=== PATIENT | male | born 1965 | race Hispanic/Latino ===

== ENCOUNTER → 2019-01-05 | Day surgery (SDC) | payer SELFPAY ==
[~2019-01-05] MED LIST: ALEVE220 M1; FENTANYL CITRATE/PF 100MCG/2 ML INJ ONE; METHOTREXATE2.5 MG PO; MIDAZOLAM HCL 2 MG/2 ML VIAL ONE; OR PHACO EYE KIT ONE; PREDNISONE5 MG; PREOP PHACO EYE KIT ONE
[2019-01-05 11:55] VITALS: BP 105/92
--- OUTSIDE RECORDS SUMMARY | 2019-01-06 10:08 | XMS REPORT | Clinical Summary ---
Author Author [facility] Organization [facility] Address Unknown Phone Unavailable Care Team Providers Care Sales And Marketing Analyst Name Role Phone Sulma Rodriguez PCP Allergies No Known Allergies Medications End Date Status Medication Sig Dispensed Refills Start Date Active piroxicam (FELDENE) 20 mg Take 1 60 capsule 1 capsuleIndications: capsule by 8 Oligoarthritis, mouth daily Ankylosing spondylitis of as needed for cervical region Pain. 01/25/2019 Active predniSONE (DELTASONE) 5 Take 1 tablet 30 tablet 1 mg tabletIndications: by mouth 9 Oligoarthritis, daily for 30 Ankylosing spondylitis of days. cervical region 01/25/2019 Active folic acid (FOLVITE) 1 mg Take 1 tablet 30 tablet 3 tabletIndications: by mouth 9 Arthralgia, unspecified daily for 30 joint, Ankylosing days. spondylitis of cervical region 01/21/2019 Active methotrexate (RHEUMATREX) Take 6 24 tablet 2 2.5 mg tabletIndications: tablets by 9 Arthralgia, unspecified mouth weekly joint, Ankylosing for 30 days. spondylitis of cervical region 01/22/2019 Active adalimumab (HUMIRA PEN) Inject 0.8 mL 2 Each 3 40 mg/0.8 mL pen kit under the 9 injectionIndications: skin every 14 Ankylosing spondylitis of days for 30 cervical region days. 08/17/2018 Discontinued hydroxychloroquine Take 1 Tab by 30 Tab 3 (PLAQUENIL) 200 mg mouth daily. 1 tabletIndications: Oligoarthritis 08/17/2018 Discontinued piroxicam (FELDENE) 20 mg Take 1 90 capsule 1 capsuleIndications: Pain, capsule by 6 joint, multiple sites mouth daily. 11/20/2018 Discontinued methotrexate (RHEUMATREX) Take 1 tablet 12 tablet 0 2.5 mg tablet by mouth 8 weekly. 08/17/2018 Discontinued predniSONE (DELTASONE) 5 Take 1 tablet 0 mg tablet by mouth. 8 11/20/2018 Discontinued folic acid (FOLVITE) 1 mg Take 1 tablet 0 tablet by mouth. 8 11/20/2018 Discontinued adalimumab (HUMIRA PEN) Inject 0.8 mL 2 Each 0 40 mg/0.8 mL pen kit under the 8 injection skin every 14 days. 11/20/2018 Discontinued predniSONE (DELTASONE) 5 Take 1 tablet 30 tablet 1 mg tabletIndications: by mouth 8 Oligoarthritis, daily. Ankylosing spondylitis of cervical region Status Hospital, Clinic, or Ordered Dose Route Frequency Start End Date Other Facility Date Administered Medication Ended lidocaine 1 % (XYLOCAINE) 4 mL IJ ONCE 11/20/19 injection 4 mL 19 9 Ended methylPREDNISolone sodium 40 mg IM ONCE 11/20/19 succinate (SOLU-MEDROL) 19 9 injection 40 mg Active Problems Problem Noted Date Rheumatoid arthritis 07/20/2018 Encounters Care Team Description Date Type Specialty Arthralgia, unspecified joint; Ankylosing spondylitis of cervical region 11/20/2018 Ancillary Radiology Procedure Arthralgia, unspecified joint; Ankylosing spondylitis of cervical region 11/20/2018 Ancillary Radiology Procedure Arthralgia, unspecified joint; Ankylosing spondylitis of cervical region 11/20/2018 Ancillary Radiology Procedure Arthralgia, unspecified joint; Ankylosing spondylitis of cervical region 11/20/2018 Ancillary Radiology Procedure Arthralgia, unspecified joint; Ankylosing spondylitis of cervical region 11/20/2018 Ancillary Radiology Procedure Arthralgia, unspecified joint; Ankylosing spondylitis of cervical region 11/20/2018 Ancillary Radiology Procedure Natan Garcia MD Tareen, Hina S, Fellow() Arthralgia, unspecified joint (Primary Dx); Bilateral knee effusions; Oligoarthritis; Ankylosing spondylitis of cervical region 11/20/2018 Office Visit Rheumatology Carmen Miller Interpretation 11/20/2018 Telephone 11/20/2018 Travel Alexa Burton MD Oligoarthritis (Primary Dx); Preventative health care; Ankylosing spondylitis of cervical region; Primary osteoarthritis of both knees 08/17/2018 Office Visit Family Practice Sulma Rodriguez DO Preventative health care; Rheumatoid arthritis, involving unspecified site, unspecified rheumatoid factor presence 07/30/2018 Orders Only Family Practice Sulma Rodriguez DO Preventative health care 07/28/2018 Orders Only [facility] Sulma Rodriguez DO Effusion of both knee joints 07/20/2018 Ancillary Radiology Procedure Edgar Andrews III, MD Javed, Sara, DO Rheumatoid arthritis, involving unspecified site, unspecified rheumatoid factor presence (Primary Dx); Preventative health care; Effusion of both knee joints 07/20/2018 Office Visit Family Practice Elias Noguera Interpretation 07/20/2018 Telephone after 01/05/2018 Immunizations Name Dates Previously Given Next Due Influenza, 08/17/2018 (Deferred: Patient Refused) Vaccine<FLUCELVAX>(Multi- Dose) Family History Relation Name Status Comments Brother Alive Brother Alive Brother Alive Brother Alive Brother Alive Brother Alive Daughter Alive Daughter Alive Father Maternal Grandfather Maternal Grandmother Mother Paternal Grandfather Paternal Grandmother Sister Alive Social History Date Tobacco Use Types Packs/Day Years Used Never Smoker Smokeless Tobacco: Never Used Alcohol Use Drinks/Week oz/Week Comments No Sex Assigned at Date Recorded Not on file Industry Job Start Date Occupation Not on file Not on file Not on file Travel End Travel History Travel Start No recent travel history available. Last Filed Vital Signs Time Taken Vital Sign Reading 11/20/2018 8:44 AM [employer] [facility] Blood Pressure 135/77 11/20/2018 8:44 AM [employer] Pulse 77 11/20/2018 8:44 AM [employer] Temperature 36.5 C (97.7 F) 11/20/2018 8:44 AM [employer] [facility] Respiratory Rate 19 - Oxygen Saturation - - Inhaled Oxygen - Concentration 11/20/2018 8:44 AM [employer] Weight 83.5 kg (184 lb) 11/20/2018 8:44 AM [employer] Height 170.2 cm (5' 7") 11/20/2018 8:44 AM [employer] Body Mass Index 28.82 Plan of Treatment Care Team Description Date Type Specialty Momo Leone, OD [address] [place] [address] [phone] 01/22/2019 Office Visit Ophthalmology Iesha Scott, Fellow() [address] [address] 02/12/2019 Office Visit Rheumatology Health Maintenance Due Date Last Done Comments Colorectal Cancer Scrn 07/28/2019 07/28/2018, 07/29/2016 Annual (FIT/FOBT) Age 50 to 75 Procedures Comments Procedure Name Priority Date/Time Associated Diagnosis FLUID STAIN / CULTURE Routine 11/20/2018 Arthralgia, unspecified 3:33 PM [employer] joint Ankylosing spondylitis of cervical region PATHOLOGY REVIEW, FLUIDS Routine 11/20/2018 3:32 PM [employer] URIC ACID ELIZABETH Routine 11/20/2018 Arthralgia, unspecified 3:32 PM [employer] joint Ankylosing spondylitis of cervical region URIC ACID, FLD Routine 11/20/2018 Arthralgia, unspecified 3:32 PM [employer] joint Ankylosing spondylitis of cervical region CELL COUNT, FLUID Routine 11/20/2018 Arthralgia, unspecified 3:32 PM [employer] joint Ankylosing spondylitis of cervical region XRAY FOOT 3 VIEWS MIN Routine 11/20/2018 Arthralgia, unspecified 2:05 PM [employer] joint Ankylosing spondylitis of cervical region XRAY FOOT 3 VIEWS - Routine 11/20/2018 Arthralgia, unspecified ROUTINE 2:05 PM [employer] joint Ankylosing spondylitis of cervical region XRAY HAND 3 VIEWS MIN Routine 11/20/2018 Arthralgia, unspecified 2:04 PM [employer] joint Ankylosing spondylitis of cervical region XRAY HAND 3 VIEWS - Routine 11/20/2018 Arthralgia, unspecified ROUTINE 2:04 PM [employer] joint Ankylosing spondylitis of cervical region XRAY SACROILIAC JOINT 3 Routine 11/20/2018 Arthralgia, unspecified VIEWS MIN. 2:04 PM [employer] joint Ankylosing spondylitis of cervical region XRAY SACROILIAC JOINT 3 Routine 11/20/2018 Arthralgia, unspecified VIEWS MIN. 2:04 PM [employer] joint Ankylosing spondylitis of cervical region XRAY SPINE LUMBAR BENDING Routine 11/20/2018 Arthralgia, unspecified 4 VIEWS 2:03 PM [employer] joint Ankylosing spondylitis of cervical region XRAY SPINE, THORACIC, Routine 11/20/2018 Arthralgia, unspecified LUMBAR, AP-LAT 2:02 PM [employer] joint Ankylosing spondylitis of cervical region XRAY SPINE CERVICAL 4-5 Routine 11/20/2018 Arthralgia, unspecified VIEWS 2:02 PM [employer] joint Ankylosing spondylitis of cervical region QUANTIFERON TB GOLD Routine 11/20/2018 11:41 AM [employer] URIC ACID Routine 11/20/2018 Arthralgia, unspecified 11:41 AM [employer] joint HEPATITIS PANEL Routine 11/20/2018 Arthralgia, unspecified 11:41 AM [employer] joint C-REACTIVE PROT Routine 11/20/2018 Arthralgia, unspecified 11:41 AM [employer] joint SED RATE Routine 11/20/2018 Arthralgia, unspecified 11:41 AM [employer] joint COMPREHENSIVE METABOLIC Routine 11/20/2018 Arthralgia, unspecified PANEL(DBIL NOT INCLUDED) 11:41 AM [employer] joint CBC/DIFF Routine 11/20/2018 Arthralgia, unspecified 11:41 AM [employer] joint HLA B 27 Routine 11/20/2018 Arthralgia, unspecified 11:41 AM [employer] joint QUANTIFERON TB GOLD Routine 11/20/2018 Arthralgia, unspecified 11:41 AM [employer] joint MERA Routine 07/30/2018 Rheumatoid arthritis, 9:53 AM CDT involving unspecified site, unspecified rheumatoid factor presence CBC/DIFF Routine 07/30/2018 Preventative health care 9:53 AM CDT CCP IGG ABS Routine 07/30/2018 Rheumatoid arthritis, 9:53 AM CDT involving unspecified site, unspecified rheumatoid factor presence COMPREHENSIVE METABOLIC Routine 07/30/2018 Preventative health care PANEL(DBIL NOT INCLUDED) 9:53 AM CDT HEMOGLOBIN A1C Routine 07/30/2018 Preventative health care 9:53 AM CDT HIV-1/HIV-2 ROUTINE Routine 07/30/2018 Preventative health care SCREENING 9:53 AM CDT LIPID PROFILE Routine 07/30/2018 Preventative health care 9:53 AM CDT RA FACTOR Routine 07/30/2018 Rheumatoid arthritis, 9:53 AM CDT involving unspecified site, unspecified rheumatoid factor presence SED RATE Routine 07/30/2018 Rheumatoid arthritis, 9:53 AM CDT involving unspecified site, unspecified rheumatoid factor presence TSH Routine 07/30/2018 Preventative health care 9:53 AM CDT OCCULT BLOOD ICT Routine 07/28/2018 Preventative health care 10:44 AM CDT XRAY KNEES-BILATERAL WT. Routine 07/20/2018 Effusion of both knee BEARING (AP/LAT/SUN) 3:34 PM CDT joints after 01/05/2018 Results * FLUID STAIN / CULTURE (11/20/2018 3:33 PM [employer] [facility]) Spec Synovial fluid [facility] 1 Description Order Comments None [facility] 1 Gram Stain 2+ WBC's seen [facility] MICROBIOLOGY No organisms seen Culture No growth 3 days [facility] MICROBIOLOGY Report Status Final 11/24/2018 [facility] MICROBIOLOGY Specimen Synovial fluid - SYNOVIAL FLUID Performing Organization Address City/State/Zipcode Phone Number [facility] 1 BT MICROBIOLOGY * PATHOLOGY REVIEW, FLUIDS (11/20/2018 3:32 PM [employer] [facility]) Pathology (note) [facility] Review, Fluids Slide reviewed for crystals. 1 No crystals are identified. Electronically signed out by: Cynthia Christine M.D.,PhD. /[id number] CPT [id number] Specimen Synovial fluid Performing Organization Address City/[facility]/Zipcode Phone Number [facility] 1 * URIC ACID, FLD (11/20/2018 3:32 PM [employer] [facility]) Uric Acid, Fld 5.2 [facility] 4 Specimen Synovial fluid - SYNOVIAL FLUID Performing Organization Address City/[facility] Phone Number [facility] 4 * URIC ACID ELIZABETH (11/20/2018 3:32 PM [employer] [facility]) Uric Acid Elizabeth Negative [facility] Reviewed by Pathologist 1 Specimen Synovial fluid - SYNOVIAL FLUID Performing Organization Address City/[facility] Phone Number [facility] 1 * CELL COUNT, FLUID (11/20/2018 3:32 PM [employer] [facility]) Volume 6.0 mL [facility] 1 Appearance Cloudy [facility] 1 RBC 2,500 /uL [facility] 1 WBC 5,825 /uL [facility] 1 Neutrophil 80 % [facility] 1 Lymphocyte 6 % [facility] 1 Monocyte 7 % [facility] 1 Macrophage 7 % [facility] 1 Specimen Synovial fluid - SYNOVIAL FLUID Performing Organization Address [facility] Phone Number [facility] 1 * XRAY FOOT 3 VIEWS - ROUTINE (11/20/2018 2:05 PM [employer] [facility]) Impressions Performed At IMPRESSION: SMS Lateral subluxation of several of the right toes. Old appearing deformity of the distal left tibia. Scattered degenerative change. No osseous erosion. Small inferior calcaneal bone spurs Signed By: Nishant Chawla MD, 11/20/2018 1:37 PM Narrative Performed At Exam:Radiographs of the right and left foot SMS History:Pain. Arthritis. Comparison: None. DISCUSSION:No fracture. Lateral subluxation of several of the right toes. Old appearing deformity of the distal left tibia. Scattered degenerative change. No osseous erosion. Small inferior calcaneal bone spurs. No abnormal soft tissue calcification or soft tissue defect. Procedure Note Interface, Rad/Mammog In - 11/20/2018 2:05 PM [employer] [facility] Exam: Radiographs of the right and left foot History: Pain. Arthritis. Comparison: None. DISCUSSION: No fracture. Lateral subluxation of several of the right toes. Old appearing deformity of the distal left tibia. Scattered degenerative change. No osseous erosion. Small inferior calcaneal bone spurs. No abnormal soft tissue calcification or soft tissue defect. IMPRESSION IMPRESSION: Lateral subluxation of several of the right toes. Old appearing deformity of the distal left tibia. Scattered degenerative change. No osseous erosion. Small inferior calcaneal bone spurs Signed By: Nishant Chawla MD, 11/20/2018 1:37 PM Performing Organization Address [facility] Phone Number SMS * XRAY FOOT 3 VIEWS MIN (11/20/2018 2:05 PM [employer] [facility]) Impressions Performed At IMPRESSION: SMS Lateral subluxation of several of the right toes. Old appearing deformity of the distal left tibia. Scattered degenerative change. No osseous erosion. Small inferior calcaneal bone spurs Signed By: Nishant Chawla MD, 11/20/2018 1:37 PM Narrative Performed At Exam:Radiographs of the right and left foot SMS History:Pain. Arthritis. Comparison: None. DISCUSSION:No fracture. Lateral subluxation of several of the right toes. Old appearing deformity of the distal left tibia. Scattered degenerative change. No osseous erosion. Small inferior calcaneal bone spurs. No abnormal soft tissue calcification or soft tissue defect. Procedure Note Interface, Rad/Mammog In - 11/20/2018 2:05 PM [employer] [facility] Exam: Radiographs of the right and left foot History: Pain. Arthritis. Comparison: None. DISCUSSION: No fracture. Lateral subluxation of several of the right toes. Old appearing deformity of the distal left tibia. Scattered degenerative change. No osseous erosion. Small inferior calcaneal bone spurs. No abnormal soft tissue calcification or soft tissue defect. IMPRESSION IMPRESSION: Lateral subluxation of several of the right toes. Old appearing deformity of the distal left tibia. Scattered degenerative change. No osseous erosion. Small inferior calcaneal bone spurs Signed By: Nishant Chawla MD, 11/20/2018 1:37 PM Performing Organization Address [facility] Phone Number SMS * XRAY HAND 3 VIEWS - ROUTINE (11/20/2018 2:04 PM [employer] [facility]) Impressions Performed At IMPRESSION: SMS Scattered degenerative change. No osseous erosion Signed By: Nishant Chawla MD, 11/20/2018 1:30 PM Narrative Performed At Exam:Radiographs of the right hand. Radiographs of the left hand. SMS History:Pain. Arthritis Comparison: 10/15/2011. DISCUSSION:No fracture or dislocation. Scattered degenerative change. No osseous erosion. No abnormal soft tissue calcification or soft tissue defect.Small metallic radiopaque foreign body at the left second proximal finger. Procedure Note Edward Michael/Mammog In - 11/20/2018 2:05 PM [employer] [facility] Exam: Radiographs of the right hand. Radiographs of the left hand. History: Pain. Arthritis Comparison: 10/15/2011. DISCUSSION: No fracture or dislocation. Scattered degenerative change. No osseous erosion. No abnormal soft tissue calcification or soft tissue defect. Small metallic radiopaque foreign body at the left second proximal finger. IMPRESSION IMPRESSION: Scattered degenerative change. No osseous erosion Signed By: Nishant Chawla MD, 11/20/2018 1:30 PM Performing Organization Address [employer] Phone Number SMS * XRAY HAND 3 VIEWS MIN (11/20/2018 2:04 PM [employer] [facility]) Impressions Performed At IMPRESSION: SMS Scattered degenerative change. No osseous erosion Signed By: Nishant Chawla MD, 11/20/2018 1:30 PM Narrative Performed At Exam:Radiographs of the right hand. Radiographs of the left hand. SMS History:Pain. Arthritis Comparison: 10/15/2011. DISCUSSION:No fracture or dislocation. Scattered degenerative change. No osseous erosion. No abnormal soft tissue calcification or soft tissue defect.Small metallic radiopaque foreign body at the left second proximal finger. Procedure Note Edward Michael/Mammog In - 11/20/2018 2:05 PM [employer] [facility] Exam: Radiographs of the right hand. Radiographs of the left hand. History: Pain. Arthritis Comparison: 10/15/2011. DISCUSSION: No fracture or dislocation. Scattered degenerative change. No osseous erosion. No abnormal soft tissue calcification or soft tissue defect. Small metallic radiopaque foreign body at the left second proximal finger. IMPRESSION IMPRESSION: Scattered degenerative change. No osseous erosion Signed By: Nishant Chawla MD, 11/20/2018 1:30 PM Performing Organization Address [facility]/[employer] Phone Number SMS * XRAY SACROILIAC JOINT 3 VIEWS MIN. (11/20/2018 2:04 PM [employer] [facility]) Only the most recent of 2 results within the time period is included. Impressions Performed At IMPRESSION: SMS Scattered degenerative change. This is most pronounced at the left sacroiliac joint with partial ankylosis. No osseous erosion Signed By: Nishant Chawla MD, 11/20/2018 1:35 PM Narrative Performed At Exam:Radiographs of the sacroiliac joints right and left SMS History:Pain. Arthritis Comparison: None. DISCUSSION:No fracture or dislocation. Scattered degenerative change. This is most pronounced at the left sacroiliac joint with partial ankylosis. No osseous erosion. No abnormal soft tissue calcification or soft tissue defect. Procedure Note Interface, Edward/Mammog In - 11/20/2018 2:04 PM [employer] Exam: Radiographs of the sacroiliac joints right and left History: Pain. Arthritis Comparison: None. DISCUSSION: No fracture or dislocation. Scattered degenerative change. This is most pronounced at the left sacroiliac joint with partial ankylosis. No osseous erosion. No abnormal soft tissue calcification or soft tissue defect. IMPRESSION IMPRESSION: Scattered degenerative change. This is most pronounced at the left sacroiliac joint with partial ankylosis. No osseous erosion Signed By: Nishant Chawla MD, 11/20/2018 1:35 PM Performing Organization Address [facility] Phone Number SMS * XRAY SPINE LUMBAR BENDING 4 VIEWS (11/20/2018 2:03 PM [employer] [facility]) Impressions Performed At IMPRESSION: SMS Scattered degenerative change. No osseous erosion Signed By: Nishant Chawla MD, 11/20/2018 1:32 PM Narrative Performed At Exam:Radiographs of the lumbar spine 4 views with flexion and SMS extension History:Pain. Arthritis Comparison: None. DISCUSSION:No fracture or dislocation. Scattered degenerative change. No osseous erosion. No abnormal soft tissue calcification or soft tissue defect. No subluxation on the flexion or extension images. Procedure Note InterfaceEdward/Mammog In - 11/20/2018 2:04 PM [employer] [facility] Exam: Radiographs of the lumbar spine 4 views with flexion and extension History: Pain. Arthritis Comparison: None. DISCUSSION: No fracture or dislocation. Scattered degenerative change. No osseous erosion. No abnormal soft tissue calcification or soft tissue defect. No subluxation on the flexion or extension images. IMPRESSION IMPRESSION: Scattered degenerative change. No osseous erosion Signed By: Nishant Chawla MD, 11/20/2018 1:32 PM Performing Organization Address [facility] Phone Number SMS * XRAY SPINE, THORACIC, LUMBAR, AP-LAT (11/20/2018 2:02 PM [employer] [facility]) Impressions Performed At IMPRESSION: SMS Scattered degenerative change. No osseous erosion Signed By: Nishant Chawla MD, 11/20/2018 1:33 PM Narrative Performed At Exam:Radiographs of the thoracolumbar spine. SMS History:Pain. Arthritis Comparison: None. DISCUSSION:No fracture or dislocation. Scattered degenerative change. No osseous erosion. No abnormal soft tissue calcification or soft tissue defect. Procedure Note Alec Rad/Mammog In - 11/20/2018 2:03 PM [employer] Exam: Radiographs of the thoracolumbar spine. History: Pain. Arthritis Comparison: None. DISCUSSION: No fracture or dislocation. Scattered degenerative change. No osseous erosion. No abnormal soft tissue calcification or soft tissue defect. IMPRESSION IMPRESSION: Scattered degenerative change. No osseous erosion Signed By: Nishant Chawla MD, 11/20/2018 1:33 PM Performing Organization Address City/State/Zipcode Phone Number SMS * XRAY SPINE CERVICAL 4-5 VIEWS (11/20/2018 2:02 PM [employer] [facility]) Impressions Performed At IMPRESSION: SMS Marked osseous demineralization with ankylosis of intervertebral disc spaces and facet joints due to syndesmotic formation suggestive of ankylosing spondylitis. Dictated By: Radha Scherer MD, 11/20/2018 1:40 PM I have reviewed the study and agree with the findings in this report. Signed By: Nishant Chawla MD, 11/20/2018 1:43 PM Narrative Performed At EXAM: Cervical Spine X-ray - 3 views SMS HISTORY:inflamm arthritis, COMPARISON: Cervical spine radiographs 10/15/2011 DISCUSSION: On the lateral view, the cervical spine is visualized from the level of the skull base toC6. Slightly decreased cervical spine lordosis. Persistent squaring of the vertebral bodies with ankylosis of intervertebral disc spaces and facet joints secondary to syndesmotic formation. No displaced fracture or compression deformity is identified. Diffuse osseous demineralization. Procedure Note Alec Rad/Mammog In - 11/20/2018 2:02 PM [employer] EXAM: Cervical Spine X-ray - 3 views HISTORY:inflamm arthritis, COMPARISON: Cervical spine radiographs 10/15/2011 DISCUSSION: On the lateral view, the cervical spine is visualized from the level of the skull base to C6. Slightly decreased cervical spine lordosis. Persistent squaring of the vertebral bodies with ankylosis of intervertebral disc spaces and facet joints secondary to syndesmotic formation. No displaced fracture or compression deformity is identified. Diffuse osseous demineralization. IMPRESSION IMPRESSION: Marked osseous demineralization with ankylosis of intervertebral disc spaces and facet joints due to syndesmotic formation suggestive of ankylosing spondylitis. Dictated By: Radha Scherer MD, 11/20/2018 1:40 PM I have reviewed the study and agree with the findings in this report. Signed By: Nishant Chawla MD, 11/20/2018 1:43 PM Performing Organization Address [facility] Phone Number SMS * QUANTIFERON TB GOLD (11/20/2018 11:41 AM [employer] [facility]) [facility] [employer] (note) [employer] [employer] Plus THOR result is determined by subtracting the Nil value from either TB antigen (Ag) tube. The mitogen tube serves as a control for the test. QUANTIFERON TB1 0.04 LABORATORY AG VALUE Unit: IU/mL [facility] QUANTIFERON TB2 0.04 LABORATORY AG VALUE Unit: IU/mL [facility] QuantiFERON Nil 0.04 LABORATORY Value Unit: IU/mL [facility] QuantiFERON 0.92 LABORATORY Mitogen Value Unit: IU/mL [facility] THOR Performing Organization Address [facility] Phone Number [employer] LABORATORY CORPORATION OF [address] [place] [address] THOR 145 * QUANTIFERON TB GOLD (11/20/2018 11:41 AM RETAIL RESET MERCHANDISER) [facility] QuantiFERON Incubation performed. LABORATORY Incubation [facility] THOR QuantiFERON TB Negative LABORATORY Gold Reference range: Negative [facility] THOR Specimen Blood Performing Organization Address [facility] Phone Number [employer] [facility]ATORY [facility]POR[facility] OF [address] [place] [address] THOR 145 * COMPREHENSIVE METABOLIC PANEL(DBIL NOT INCLUDED) (11/20/2018 11:41 AM RETAIL RESET MERCHANDISER) Only the most recent of 2 results within the time period is included. [facility] Albumin 3.6 (L) 4.2 - 5.5 g/dL [facility] Calcium 9.5 8.6 - 10.3 mg/dL [facility] 1 CO2 28 21 - 31 mmol/L [facility] 1 Chloride 103 98 - 107 mmol/L [facility] 1 Creatinine 0.70 0.70 - 1.30 mg/dL [facility] 1 Glucose 96 70 - 110 mg/dL [facility] 1 Alk Phos 102 34 - 104 U/L [place] [address] Potassium 4.1 3.5 - 5.1 mmol/L [place] [address] Sodium 137 136 - 145 mmol/L [facility] 1 ALT 25 7 - 52 U/L [place] [address] AST 21 13 - 39 U/L [facility] 1 Urea Nitrogen 12 7 - 25 mg/dL [place] [address] T Bilirubin 0.5 0.2 - 1.2 mg/dL [place] [address] T Protein 9.0 (H) 6.0 - 8.3 g/dL [place] [address] GFR, Estimated >60 mL/min/1.73 m2 [place] [address] GFR, Estim, >60 mL/min/1.73 m2 [place] [address] Afr-Am Anion Gap 6 [place] [address] Specimen Blood Performing Organization Address [facility] Phone Number [facility] 1 * HLA B 27 (11/20/2018 11:41 AM RETAIL RESET MERCHANDISER) [facility] HLA-B27 Negative LABORATORY (note) [facility] HLA-B*27 Negative [facility] B27 allele interpretation for all loci based on IMGT/HLA database version 3.33.0 This test was developed and its performance characteristics determined by [employer].It has not been cleared or approved by the Food and Drug Administration. [facility] CLIA ID Number [id number] This test was performed using PCR (Polymerase Chain Reaction)/SSOP (Sequence Specific Oligonucleotide Probes) technique.SBT (Sequence Based Typing) and/or SSP (Sequence Specific Primers) may be used as supplemental methods when necessary.Please contact [facility] Customer Service at if you have any questions. Director of [facility] Laboratory Dr Hal Villegas, PhD Specimen Blood Performing Organization Address [facility] Phone Number [employer] [facility] OF [address] [place] [address] THOR 145 * URIC ACID (11/20/2018 11:41 AM RETAIL RESET MERCHANDISER) Uric acid 5.5 4.4 - 7.6 mg/dL BT [facility]IN[facility] 1 Specimen Blood Performing Organization Address [facility] Phone Number [employer] BT [facility] 1 * SED RATE (11/20/2018 11:41 AM RETAIL RESET MERCHANDISER) Only the most recent of 2 results within the time period is included. Sed Rate 101 (H) <20 mm/Hr BT [facility]IN[facility] 3 Specimen Blood Performing Organization Address City/[facility] Phone Number [facility] 3 * HEPATITIS PANEL (11/20/2018 11:41 AM RETAIL RESET MERCHANDISER) HCV IgG Negative NEG BT [facility] 3 HBsAg Negative NEG BT [facility] 3 HAV, IgM Negative NEG BT [facility] 3 HBcAb, IgM Negative NEG BT [facility]IN[facility] 3 Specimen Blood Performing Organization Address [facility] Phone Number [facility] 3 * C-REACTIVE PROT (11/20/2018 11:41 AM RETAIL RESET MERCHANDISER) C-Reactive Prot 3.7 <10 mg/dL BT [facility] 1 Performing Organization Address [facility] Phone Number [facility] 1 * CBC/DIFF (11/20/2018 11:41 AM RETAIL RESET MERCHANDISER) Only the most recent of 2 results within the time period is included. WBC 8.1 4.5 - 12.0 K/uL [facility] 2 RBC 4.61 4.60 - 6.20 M/uL [facility] 2 Hemoglobin 12.9 (L) 14.0 - 18.0 g/dL [facility] 2 Hematocrit 41.1 40.0 - 54.0 % [facility] 2 MCV 89 82 - 92 fL [facility] 2 MCH 28.0 27.0 - 31.0 pg [facility] 2 MCHC 31.4 (L) 32.0 - 36.0 g/dL [facility] 2 RDW 48.0 (H) 35.1 - 43.9 fL [facility] 2 Platelet 254 150 - 400 K/uL [facility] 2 Neutrophil 67.8 34.0 - 67.9 % [facility] 2 Lymphocyte 20.5 (L) 21.8 - 50.0 % [facility] 2 Monocyte 8.3 5.3 - 12.0 % [facility] 2 Eosinophil 2.9 0.8 - 5.0 % [facility] 2 Basophil 0.5 0.2 - 1.2 % [facility] 2 Neutrophil, Abs 5.46 (H) 1.78 - 5.36 K/uL [facility] 2 Lymphocyte, Abs 1.65 1.32 - 3.57 K/uL [facility] 2 Monocyte, Abs 0.67 0.30 - 0.82 K/uL [facility] 2 Eosinophil, Abs 0.23 0.04 - 0.54 K/uL [facility] 2 Basophil, Abs 0.04 0.01 - 0.08 K/uL [facility] 2 Specimen Blood Performing Organization Address [facility] Phone Number [facility] 2 * HIV-1/HIV-2 ROUTINE SCREENING (07/30/2018 9:53 AM CDT) Pathologist [facility] HIV-1/HIV-2 Negative NEG BT [facility] 3 Performing Organization Address [facility] Phone Number [facility] 3 * HEMOGLOBIN A1C (07/30/2018 9:53 AM CDT) Pathologist [facility] Hemoglobin A1c 5.7 4.3 - 6.1 % DIAGNOSTIC IMMUNOLOGY Est Average 116.9 mg/dL BT DIAGNOSTIC Gluc IMMUNOLOGY Specimen Blood Performing Organization Address [facility] Phone Number [facility] DIAGNOSTIC IMMUNOLOGY * CCP IGG ABS (07/30/2018 9:53 AM CDT) Pathologist [facility] CCP Abs IgG/IgA 12 LABORATORY Reference range: 0 to 19 CORPORATION OF Unit: units THOR (note) Negative <20 Weak [id number] - 39 Moderate [id number] - 59 Strong positive>59 Specimen Blood Performing Organization Address [facility] Phone Number [facility]ORY [facility]POR[facility] OF [address] [place] [place] [address] THOR 145 * TSH (07/30/2018 9:53 AM CDT) Pathologist [facility] TSH 1.93 0.57 - 3.74 uIU/mL MAIN[facility]ATION 1 Specimen Blood Performing Organization Address [facility] Phone Number [facility] 1 * RA FACTOR (07/30/2018 9:53 AM CDT) [facility] RA Factor <10 <14 IU/mL [facility]IN[facility] 1 Specimen Blood Performing Organization Address [facility] Phone Number [facility] 1 * LIPID PROFILE (07/30/2018 9:53 AM CDT) Pathologist [facility] Cholesterol 133 mg/dL BT [facility] Comment: 1 REFERENCE RANGE: Desirable: <200 mg/dL Borderline: 200-240 mg/dL High Risk: >240 mg/dL Triglyceride 110 <150 mg/dL BT [facility]IN[facility]ATION Comment: 1 REFERENCE RANGE: Normal: <150 mg/dL Borderline High: 150-199 mg/dL High: 200-499 mg/dL Very High: >ma=410 mg/dL HDL 40 mg/dL BT [facility]IN[facility] Comment: 1 Increased CHD risk: <40 mg/dL Decreased CHD risk: >60 mg/dL LDL 71 mg/dL BT [facility]IN[facility] Comment: 1 REFERENCE RANGE: Optimal: <100 mg/dL Near Optimal: 100-129 mg/dL Borderline High: 130-159 mg/dL High: 160-189 mg/dL Very High: >cl=652 mg/dL Specimen Blood Performing Organization Address [facility] Phone Number [employer] BT MAIN-STATION 1 * MERA (07/30/2018 9:53 AM CDT) MERA Screen Negative NEG BT DIAGNOSTIC IMMUNOLOGY Specimen Blood Performing Organization Address [facility] Phone Number [employer] BT DIAGNOSTIC IMMUNOLOGY * OCCULT BLOOD ICT (07/28/2018 10:44 AM CDT) Occult Blood Negative NEG [facility] ICT Specimen Stool Performing Organization Address [facility] Phone Number [employer] [facility] * XRAY KNEES-BILATERAL WT. BEARING (AP/LAT/SUN) (07/20/2018 3:34 PM CDT) Impressions Performed At IMPRESSION: SMS 1. Kellgren-Go grade 3, moderate compartmental osteoarthrosis of the right knee. 2. Kellgren-Go grade 3, moderate tricompartmental osteoarthrosis of the left knee. 3. Moderate bilateral joint effusions. Dictated By: Keegan Camacho DO, 07/21/2018 8:01 AM I have reviewed the study and agree with the findings in this report. Signed By: Brandon Barreto MD, 07/21/2018 8:47 AM Narrative Performed At EXAM: Bilateral knee radiographs, 2 weight-bearing views and one sunrise SMS view of each INDICATION: knee pain and effusion COMPARISON: Bilateral knee x-ray from 10/15/2011 DISCUSSION: Right knee: The medial and lateral joint spaces are decreased. Mild medial and lateral compartment osteophytosis. Moderate patellofemoral compartment degenerative changes. Left knee: The medial and lateral joint spaces are decreased. Mild medial and lateral compartment osteophytosis. Moderate patellofemoral compartment degenerative changes. No acute fracture or dislocation. Moderate bilateral joint effusions. The soft tissues are otherwise unremarkable. Procedure Note Interface, Rad/Mammog In - 07/21/2018 8:52 AM CDT EXAM: Bilateral knee radiographs, 2 weight-bearing views and one sunrise view of each INDICATION: knee pain and effusion COMPARISON: Bilateral knee x-ray from 10/15/2011 DISCUSSION: Right knee: The medial and lateral joint spaces are decreased. Mild medial and lateral compartment osteophytosis. Moderate patellofemoral compartment degenerative changes. Left knee: The medial and lateral joint spaces are decreased. Mild medial and lateral compartment osteophytosis. Moderate patellofemoral compartment degenerative changes. No acute fracture or dislocation. Moderate bilateral joint effusions. The soft tissues are otherwise unremarkable. IMPRESSION IMPRESSION: 1. Kellgren-Go grade 3, moderate compartmental osteoarthrosis of the right knee. 2. Kellgren-Go grade 3, moderate tricompartmental osteoarthrosis of the left knee. 3. Moderate bilateral joint effusions. Dictated By: Keegan Camacho DO, 07/21/2018 8:01 AM I have reviewed the study and agree with the findings in this report. Signed By: Brandon Barreto MD, 07/21/2018 8:47 AM Performing Organization Address City/State/Zipcode Phone Number SMS after 01/05/2018 Insurance Type Payer Benefit Subscriber ID Effective Phone Address Plan / Dates Group [facility] xxxxxx 2018-[address] [employer] /06/2019 [id number] [place], [place] [address]
--- OUTSIDE RECORDS SUMMARY | 2019-01-06 10:09 | XMS REPORT ---
Author [facility] Address Unknown Phone Unavailable Care Team Providers Care Armed Custom Protection Officer Name Role Phone Unavailable Unavailable Problems This patient has no known problems. Allergies, Adverse Reactions, Alerts This patient has no known allergies or adverse reactions. Medications This patient has no known medications. Encounters Start Date/Time End Date/Time Encounter Type Admission Type Attending [email or web address] Care Department Encounter ID 2019-02-12 00:00:00 2019-02-12 00:00:00 Outpatient [facility] [id number] 2019-01-22 00:00:00 2019-01-22 00:00:00 Outpatient [facility] [id number] 2018-11-20 12:08:56 2018-11-20 12:08:56 Outpatient [facility] [id number] 2018-11-20 12:08:51 2018-11-20 12:08:51 Outpatient [facility] [id number] 2018-11-20 12:02:45 2018-11-20 12:02:45 Outpatient [facility] [id number] 2018-11-20 12:02:41 2018-11-20 12:02:41 Outpatient [facility] [id number] 2018-11-20 12:02:37 2018-11-20 12:02:37 Outpatient [facility] [id number] 2018-11-20 12:02:33 2018-11-20 12:02:33 Outpatient [facility] [id number] 2018-11-20 11:24:25 2018-11-20 11:24:25 Outpatient [facility] [id number] 2018-11-20 08:43:17 2018-11-20 08:43:17 Outpatient [facility] [id number] 2018-08-17 14:03:12 2018-08-17 14:03:12 Outpatient [facility] [id number] 2018-07-30 09:52:56 2018-07-30 09:52:56 Outpatient [facility] [id number] 2018-07-20 15:28:25 2018-07-20 15:28:25 Outpatient [facility] [id number] 2018-07-20 13:29:32 2018-07-20 13:29:32 Outpatient [facility] [id number]
== END | disposition home or self-care (01) ==
LOC: OR 09:05
PROVIDERS: ATTEND Ophthalmology
DX: H25.11 Age-related nuclear cataract, right eye (principal); M06.9 Rheumatoid arthritis, unspecified
CPT/HCPCS: 66984; J2250; V2632

== ENCOUNTER → 2021-09-18 | Day surgery (SDC) | payer SELFPAY ==
[~2021-09-18] MED LIST changes: +HUMIRA40 MG/0.8 INJ
[2021-09-18 14:13] VITALS: BP 138/85
== END | disposition home or self-care (01) ==
LOC: OR 11:05
PROVIDERS: ATTEND Ophthalmology
DX: H25.12 Age-related nuclear cataract, left eye (principal); M06.9 Rheumatoid arthritis, unspecified; Z01.812 Encounter for preprocedural laboratory examination; Z20.822 Contact with and (suspected) exposure to COVID-19; Z79.899 Other long term (current) drug therapy
CPT/HCPCS: 66984; J2250; J3010; U0002; V2788